=== PATIENT | male | born 1960 | race Caucasian/White ===

== ENCOUNTER → 2023-07-17 | Outpatient (CLI) | payer OTHER, SELFPAY ==
--- NOTE | 2023-07-17 15:47 | RAD_ITS ---
STUDY: X-RAY - RIGHT KNEE REASON FOR EXAM: Male, 62 years old. pain TECHNIQUE: 4 view(s) of the knee. COMPARISON: None. FINDINGS: Normal visualized distal femur. Normal visualized proximal tibia and fibula. Normal proximal tibiofibular articulation. Narrowed medial femorotibial compartment with mild valgus deformity.. Normal lateral femorotibial compartment. Narrowed lateral compartment of the patellofemoral articulation. The soft tissue structures are unremarkable. RAD/Knee 4 or More Views IMPRESSION: Advanced degenerative osteoarthritic change. Electronically Signed: Jordon Ramesh MD at 16:09 EST Reading Location ID and State: [address] [place] [address] Tel , Service support ,
== END | disposition home or self-care (01) ==
LOC: RAD 15:36
PROVIDERS: Referring Provider Orthopaedic Surgery; Visit Provider Orthopaedic Surgery
DX: M25.561 Pain in right knee (principal)
CPT/HCPCS: 73564

== ENCOUNTER → 2023-08-31 | Outpatient (CLI) | payer OTHER, SELFPAY ==
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
--- OUTSIDE RECORDS SUMMARY | 2023-08-31 07:02 | XMS RPT_ITS | CCD ---
Author Name Unknown Address [facility] [place] [address] Organization [facility] Care Team Providers Care Women'S Studies Professor Name Role Phone Tim Fields Jr. Primary Care Provider BARBARA HUNTER Attending Unavailable TIM FIELDS JR Primary Care Unavaila ble Medications Completed/Discontinued Medications Medication Drug Class(es) Dates Sig (Normalized) Sig (Original) Acetaminophen (1 source) ACETAMINOPHEN (T YLENOL EXTRA STRENGTH ORAL) Take by mouth as needed. 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 06-12-2012 Chronic Past or Other Problems Problem Classification Problem Date Documented Da te Episodic/Chronic Other upper respiratory disease (1 source) Bleeding from nose; Translations: [Epistaxis] Onset: 06-12-2012 06-12-2012 Episodic Results Test Name Value Interpretation Reference Range Facil ity Encounters Encounter Date Encounter Type Care Provider Facility Start: 09-28-2022 End: 09-28-2022 ambulatory BARBARA HUNTER Facility:[facility] Start: 09-28-2022 End: 09-28-2022 ambulatory Barbara Duckworth PA-C Work Phone: [facility] Plan of Treatment Date Care Activity Detail Author Start: 07-10-2022 DEPRESSION ASSESSMENT DEPRESSION ASS ESSMENT [facility] Start: 02-05-2021 COVID-19 VACCINE (3 - Booster for Pfizer series) COVID-19 VACCINE (3 - Booster for Pfizer series) [facility] Start: 2017 PROSTATE CANCER SCRE ENING DISCUSSION PROSTATE CANCER SCREENING DISCUSSION [facility] Start: 06-12-2015 DIABETES SCREEN DIABETES SCREEN [facility] Start: 2012 SHINGRIX VACCINE (1 of 2) SHINGRIX V ACCINE (1 of 2) [facility] Start: 10-02-2007 COLOGUARD (FIT-DNA) COLOGUARD (FIT-D NA) [facility] Start: 10-02-2007 Colonoscopy COLONOSCOPY [facility] Start: 10-02-2007 COLORECTAL CANCER SCREENING COLORECTAL CANCER SCREENING [facility] Start: 10-02-[address] COLONOGRAPHY [facility] Start: 10-02-2007 FECAL OCCULT BLOOD FECAL OCCULT BLOO D [facility] Start: 10-02-2007 SIGMOIDOSCOPY SIGMOIDOSCOPY [facility] Start: 1997 LIPID SCREEN LIPID SCREEN [facility] Start: 1981 Urine microalbumin profile DTAP,TDAP ,TD (1 - Tdap) [facility] Start: 1980 HEPATITIS C SCREENING HEPATITIS C SC REENING [facility] Start: 1980 HIV SCREENING HIV SCREENING [facility] Immunizations Immunization Date Immunization Notes Care Provider Marilin wyatt 04-27-2022 influenza virus vacc ine, unspecified formulation Barbara Duckworth PA-C Work Phone: [facility] 04-26-2021 influenza virus vacc ine, unspecified formulation Barbara Duckworth PA-C Work Phone: [facility] Payers Date Payer Category Payer Private Health Insurance [facility] CHOICE PLUS [id number] 2022-Present [phone] [address] [place] [address] O [id number] 2022 Unknown [id number] Social History Date Type Detail Facility Start: 10-25-[address] [facility] Start: 10-25-2012 Tobacco use and exposure Smokeless tobacco non-user [facility] Start: 09-27-2022 Alcohol intake Current drinke r of alcohol (finding) [facility] Start: 10-25-2012 Alcohol Comment [facility] Start: 1960 Sex Assigned At Not on file [facility] Medical Equipment Procedure Code Equipment Code Equipment Origin al Text Equipment Identifier Dates Duraseal 5ml - [id number] Start: 07-17-2012 Progress note 09-28-2022 Note Date & Type Note Facility 09-28-2022 Note HNO ID: [id number] Author: Barbara Duckworth PA-C Service: ? Author Type: Physician Alum Plant Operator Type: Progress Notes Filed: 09/30/2022 7:29 AM Note Text: This is a virtual visit using [employer] video visit. It required patient-provider interaction for the medical decision making as documented below. I have communicated my name and active licensure. The patient's identity and physical location were verified at the time of this visit. Either the patient or their legal retail representative has been informed of the risks and benefits of -- and alternatives to -- treatment through a remote evaluation and consents to proceed with the evaluation remotely. Ruben Bear is a 61 year old male seen for anemia. Patient tells me that he has a chronic anemia. 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 Patient tells me that he is not having any GI symptoms. Denies abdominal pain, change in bowel habits, rectal bleeding. Does note some black stools after his bad nosebleeds. Denies smoking or alcohol use. Father had throat cancer, was smoker. HISTORY REVIEWED (electronic chart updated): PAST MEDICAL HISTORY Diagnosis Date Anemia PAST SURGICAL HISTORY Procedure Laterality Date CAUTERIZATION INNER NOSE 07/10/2001 bilateral COLONOSCOPY SCREENING 02/27/2012 internal hemorrhoids NASAL/SINUS ENDOSCOPY W/CONTROL EPISTAXIS 07/17/2012 PAST SURGICAL HISTORY OF neck surgery ( imflamed lymph node) No family history on file. Social History Tobacco Use Smoking status: Never Smokeless tobacco: Never Substance Use Topics Alcohol use: Yes Comment: occasionally Drug use: No Current Outpatient Medications Medication Sig celecoxib (CELEBREX) 100 mg capsule Take 100 mg by mouth once daily. COMPOUNDED PRESCRIPTION [facility] NASAL CREAM. Apply with Qtip 4 times daily to each nostril. timolol 0.5 % ophthalmic solution 1 Drop twice daily. One spray to each nostril three times daily. ACETAMINOPHEN (TYLENOL EXTRA STRENGTH ORAL) Take by mouth as needed. No current facility-administered medications for this visit. ALLERGIES No Known Allergies REVIEW OF SYSTEMS: Review of Systems Constitutional: Negative for weight loss. HENT: Positive for nosebleeds. Gastrointestinal: Negative. PHYSICAL EXAMINATION: VIDEO EXAM: (if completed, performed via video enabled technology) Not completed due to connectivity issues. Assessment/Plan (D50.0) Iron deficiency anemia due to chronic blood loss (primary encounter diagnosis) 1. Iron deficiency anemia due to chronic blood loss -- Patient with chronic LORETTA. Thinks this is related to his HHT and recurrent nosebleeds. -- He is currently taking Iron and Vitamin C. -- Discussed the need for colonoscopy as he is overdue. He would like to hold off on this. -- Discussed FIT test today r/o GI source of bleeding, he also declines this today. -- Discussed red flag symptoms including abdominal pain, change in bowels, rectal bleeding. He will call the office if this presents. Follow up in office PRN. Recommended to please call office/go to ER if fever, chills, chest pain, SOB, diarrhea, nausea, emesis, worsening abdominal pain, dehydration occurs I spent a total of 20 minutes on the date of the service which included preparing to see the patient, [id number] patient care, completing clinical documentation, obtaining and/or reviewing separately obtained history, performing a medically appropriate examination, and counseling and educating the patient/family/caregiver. Barbara Duckworth PA-C September 28, 2022 3:38 PM [facility] History of Present illness Narrative 09-28-2022 Barbara Duckworth PA-C - 09/28/2022 3:40 PM EDT Note Date & Type Note Facility 09-28-2022 History of Presen t illness Narrative Images from the original note were not included. This is a virtual visit using [employer] video visit. It required patient-provider interaction for the medical decision making as documented below. Ruben Bear is a 61 year old male seen for anemia. Patient tells me that he has a chronic anemia. 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 Patient tells me that he is not having any GI symptoms. Denies abdominal pain, change in bowel habits, rectal bleeding. Does note some black stools after his bad nosebleeds. Denies smoking or alcohol use. Father had throat cancer, was smoker. HISTORY REVIEWED (electronic chart updated): PAST MEDICAL HISTORY Diagnosis Date Anemia PAST SURGICAL HISTORY Procedure Laterality Date CAUTERIZATION INNER NOSE 07/10/2001 bilateral COLONOSCOPY SCREENING 02/27/2012 internal hemorrhoids NASAL/SINUS ENDOSCOPY W/CONTROL EPISTAXIS 07/17/2012 PAST SURGICAL HISTORY OF neck surgery ( imflamed lymph node) No family history on file. Social History Tobacco Use Smoking status: Never Smokeless tobacco: Never Substance Use Topics Alcohol use: Yes Comment: occasionally Drug use: No Current Outpatient Medications Medication Sig celecoxib (CELEBREX) 100 mg capsule Take 100 mg by mouth once daily. COMPOUNDED PRESCRIPTION [facility] NASAL CREAM. Apply with Qtip 4 times daily to each nostril. timolol 0.5 % ophthalmic solution 1 Drop twice daily. One spray to each nostril three times daily. ACETAMINOPHEN (TYLENOL EXTRA STRENGTH ORAL) Take by mouth as needed. No current facility-administered medications for this visit. ALLERGIES No Known Allergies REVIEW OF SYSTEMS: Review of Systems Constitutional: Negative for weight loss. HENT: Positive for nosebleeds. Gastrointestinal: Negative. PHYSICAL EXAMINATION: VIDEO EXAM: (if completed, performed via video enabled technology) Not completed due to connectivity issues. Assessment/Plan (D50.0) Iron deficiency anemia due to chronic blood loss (primary encounter diagnosis) 1. Iron deficiency anemia due to chronic blood loss -- Patient with chronic LORETTA. Thinks this is related to his HHT and recurrent nosebleeds. -- He is currently taking Iron and Vitamin C. -- Discussed the need for colonoscopy as he is overdue. He would like to hold off on this. -- Discussed FIT test today r/o GI source of bleeding, he also declines this today. -- Discussed red flag symptoms including abdominal pain, change in bowels, rectal bleeding. He will call the office if this presents. Follow up in office PRN. Recommended to please call office/go to ER if fever, chills, chest pain, SOB, diarrhea, nausea, emesis, worsening abdominal pain, dehydration occurs I spent a total of 20 minutes on the date of the service which included preparing to see the patient, [id number] patient care, completing clinical documentation, obtaining and/or reviewing separately obtained history, performing a medically appropriate examination, and counseling and educating the patient/family/caregiver. Barbara Duckworth PA-C September 28, 2022 3:38 PM documented in this encounter [facility] Evaluation note Note Date & Type Note Facility documented in this encounter [facility] Summary Purpose Family History No Family History Records FoundNo Family History Records FoundNo Family History Records FoundNo Family History Records Found Advance Directives No Advanced Directives Records FoundNo Advanced Directives Records FoundNo Advanced Directives Records FoundNo Advanced Directives Records Found Additional Source Comments (unrecognized sect ion and content) No Status Records FoundNo Status Records FoundNo Status Records FoundNo Status Records Found INFORMATION SOURCE (unrecogn ized section and content) DATE CREATED AUTHOR AUTHOR'S ORGANIZ ATION 08/11/2021 [employer] DATE CREATED AUTHOR AUTHOR'S ORGANIZ ATION 08/07/2022 [employer] [facility] DATE CREATED AUTHOR AUTHOR'S ORGANIZ ATION 06/25/2023 [facility] Source Comments (unrecognize d section and content) In the event this informatio n is protected by the Federal Confidentiality of Alcohol and Drug Abuse Patient Records regulations: The Federal rules restrict any use of the information to criminally investigate or prosecute any alcohol or drug abuse patient.[facility] Reason for Visit (unrecogniz ed section and content) Care Teams (unrecognized sec tion and content) FOR RECORDS PERTAINING TO PATIENTS WHO ARE OR HAVE BEEN ENROLLED IN A CHEMICAL DEPENDENCY/SUBSTANCEABUSE PROGRAM, SOME INFORMATION MAY BE OMITTED. This clinical summary was aggregated from multiple sources. Caution should be exercised in using it in the provision of clinical care. This summary normalizes information from multiple sources, and as a consequence, information in this document may materially change the coding, format and clinical context of patient data. In addition, data may be omitted in some cases. CLINICAL DECISIONS SHOULD BE BASED ON THE PRIMARY CLINICAL RECORDS. [facility] [employer] [facility]. provides no warranty or guarantee of the accuracy or completeness of information in this document.
== END | disposition home or self-care (01) ==
LOC: CT 07:00
PROVIDERS: Referring Provider Orthopaedic Surgery; Visit Provider Orthopaedic Surgery
DX: M17.11 Unilateral primary osteoarthritis, right knee (principal)
CPT/HCPCS: 73700

== ENCOUNTER 2023-09-12 08:07 | Inpatient (IN) | payer OTHER, SELFPAY ==
--- NOTE | 2023-08-31 07:02 | EKG12_ITS ---
Test Reason : PRE-OP Blood Pressure : / mmHG Vent. Rate : 070 BPM Atrial Rate : 070 BPM P-R Int : 122 ms QRS Dur : 074 ms QT Int : 382 ms P-R-T Axes : 032 036 027 degrees QTc Int : 412 ms Normal sinus rhythm Normal ECG Confirmed by YAQUELIN CHU, DIAMANTE ([id number]), purchasing expeditor BRONWYN MELENDEZ ([id number]) on 09/01/2023 6:48:58 AM Referred By: JANIE Confirmed By:DIAMANTE JAMISON MD
[2023-08-31 08:06] LABS: Absolute Lymphocyte Count 1.17 X10^3/uL (0.83-4.51); Absolute Neutrophil Count 3.2 X10^3/uL (2.0-7.7); Basophil# 0.05 X10^3/uL; Basophil% 0.9 % (0-1); Eosinophil# 0.19 X10^3/uL; Eosinophils% 3.6 % (0-5); Hemoglobin 13.5 g/dL (13.0-16.5); Lymphocyte # 1.17 X10^3/ul (0.83-4.51); Lymphocyte % 22.1 % (19-41); Mean Corp Hgb Conc 30.7 g/dL (32-36); Mean Corpuscular Hgb 27.7 pg (27.0-32.0); Mean Corpuscular Volume 90.2 fL (80-94); Mean Platelet Vol. 10.2 fl (6.2-12.0); Monocyte# 0.63 X10^3/uL; Monocyte% 11.9 % (0-10); NRBC Flagged by Analyzer 0 % (0-5); Neutrophil # 3.24 X10^3/uL (2.7-7.7); Neutrophil % 61.3 % (47-70); Platelet Count 216 K/mm3 (150-450); RBC Distribution Width CV 15.3 % (11.6-14.6); RBC Distribution Width SD 48.5 fl (35.1-43.9); Red Blood Count 4.88 M/mm3 (4.6-6.2); White Blood Count 5.3 K/mm3 (4.4-11.0)
[2023-08-31 08:17] LABS: Prothrombin Time (Protime)PT. 13.3 SECONDS (11.7-14.9)
[2023-08-31 08:18] LABS: Partial Thromboplast Time 29.2 Seconds (24.1-36.2)
[2023-08-31 08:27] LABS: Anion Gap 2 (5-15); BUN 17 mg/dL (7-18); Calcium,Total 9.1 mg/dL (8.5-10.1); Chloride 112 mmol/L (98-107); Creatinine, Serum 0.89 mg/dL (0.70-1.30); EST Glomerular Filtration Rate 92 mL/min (>60); Est Glom Filt Rate - Afr Amer 111 mL/min (>60); Glucose 103 mg/dL (74-106); Potassium 4.1 mmol/L (3.5-5.1); Sodium Level 142 mmol/L (136-145)
[2023-08-31 08:32] LABS: Magnesium 1.8 mg/dL (1.6-2.6)
[2023-08-31 08:43] LABS: Hemoglobin A1c 4.9 % (3.8-5.6)
[2023-09-01 05:07] LABS: Fructosamine 212 umol/L (0-285)
[2023-09-12] VITALS (15 sets, daily range): BP systolic 130–141; BP diastolic 56–96; PULSE 60–99; RESP 16–18; TEMP 36.5–36.7; O2SAT 95–100; BMI 29.2
--- OUTSIDE RECORDS SUMMARY | 2023-09-12 08:35 | XMS RPT_ITS | CCD ---
Author Name Unknown Address [facility] [place] [address] Organization [facility] Care Team Providers Care Manager Merchandise Name Role Phone Tim Fields Jr. Primary [...] Start: 09-28-2022 End: 09-28-2022 ambulatory BARBARA HUNTER Facility:[facility] Start: 09-28-2022 End: 09-28-2022 ambulatory Barbara Duckworth PA-C Work Phone: [facility] [place] Plan of Treatment Date Care Activity Detail Author Start: 07-10-2022 DEPRESSION ASSESSMENT DEPRESSION ASS ESSMENT [facility] Start: 02-05-2021 COVID-19 VACCINE (3 - Booster for Pfizer series) COVID-19 VACCINE (3 - Booster for Pfizer series) [facility] Start: 2017 PROSTATE CANCER SCRE ENING DISCUSSION PROSTATE CANCER SCREENING DISCUSSION [facility] Start: 06-12-2015 DIABETES SCREEN DIABETES SCREEN [facility] Start: 2012 SHINGRIX VACCINE (1 of 2) SHINGRIX V ACCINE (1 of 2) [facility] Start: 10-02-2007 COLOGUARD (FIT-DNA) COLOGUARD (FIT-D NA) [facility] Start: 10-02-2007 Colonoscopy COLONOSCOPY [facility] Start: 10-02-2007 COLORECTAL CANCER SCREENING COLORECTAL CANCER SCREENING [facility] Start: 10-02-[address] COLONOGRAPHY [facility] Start: 10-02-2007 FECAL OCCULT BLOOD FECAL OCCULT BLOO D [facility] Start: 10-02-2007 SIGMOIDOSCOPY SIGMOIDOSCOPY [facility] Start: 1997 LIPID SCREEN LIPID SCREEN [facility] Start: 1981 Urine microalbumin profile DTAP,TDAP ,TD (1 - Tdap) [facility] Start: 1980 HEPATITIS C SCREENING HEPATITIS C SC REENING [facility] Start: 1980 HIV SCREENING HIV SCREENING [facility] Immunizations Immunization Date Immunization Notes Care Provider Marilin wyatt 04-27-2022 influenza virus vacc ine, unspecified formulation Barbara Duckworth PA-C Work Phone: [facility] 04-26-2021 influenza virus vacc ine, unspecified formulation Barbara Duckworth PA-C Work Phone: [facility] Payers Date Payer Category Payer Private Health Insurance [facility] CHOICE PLUS [id number] 2022-Present [phone] [address] [place] [address] O [id number] 2022 Unknown [id number] Social History Date Type Detail Facility [facility]: 10-25-2012 [facility] Start: 10-25-2012 Tobacco use and exposure Smokeless tobacco non-user [facility] Start: 09-27-2022 Alcohol intake Current drinke r of alcohol (finding) [facility] Start: 10-25-2012 Alcohol Comment [facility] Start: 1960 Sex Assigned At Not on file [facility] Medical Equipment Procedure Code Equipment Code Equipment Origin al Text Equipment Identifier Dates Duraseal 5ml - [id number] Start: 07-17-2012 Progress note 09-28-2022 Note Date & Type Note Facility 09-28-2022 Note HNO ID: [id number] Author: Barbara Duckworth PA-C Service: ? Author Type: Physician Steam Frame Operator Type: Progress Notes Filed: 09/30/2022 7:29 AM Note Text: This is a virtual visit using [employer] video visit. It required patient-provider interaction for the medical decision making as documented below. I have communicated my name and active licensure. The patient's identity and physical location were verified at the time of this visit. Either the patient or their legal bilingual call center representative has been informed of the risks [...] which included preparing to see the patient, [id number] patient care, completing clinical documentation, obtaining and/or reviewing separately obtained history, performing a medically appropriate examination, and counseling and educating the patient/family/caregiver. Barbara Duckworth PA-C September 28, 2022 3:38 PM [facility] History of Present illness Narrative 09-28-2022 Barbara Duckworth PA-C - 09/28/2022 3:40 PM EDT Note Date & Type Note Facility 09-28-2022 History of Presen t illness Narrative Images from the original note were not included. This is a virtual visit using [employer] video visit. It required patient-provider interaction for [...] which included preparing to see the patient, [id number] patient care, completing clinical documentation, obtaining and/or reviewing separately obtained history, performing a medically appropriate examination, and counseling and educating the patient/family/caregiver. Barbara Duckworth PA-C September 28, 2022 3:38 PM documented in this encounter [facility] Evaluation note Note Date & Type Note Facility documented in this encounter [facility] Summary Purpose Family History No Family History [...] DATE CREATED AUTHOR AUTHOR'S ORGANIZ ATION 08/11/2021 [employer] DATE CREATED AUTHOR AUTHOR'S ORGANIZ ATION 08/07/2022 [employer] [facility] DATE CREATED AUTHOR AUTHOR'S ORGANIZ ATION 06/25/2023 [facility] Source Comments (unrecognize d section and content) In the event this informatio n is protected by the Federal Confidentiality of Alcohol and Drug Abuse Patient Records regulations: The Federal rules restrict any use of the information to criminally investigate or prosecute any alcohol or drug abuse patient.[facility] Reason for Visit (unrecogniz ed section and [...] BE BASED ON THE PRIMARY CLINICAL RECORDS. [facility] [employer] [facility]. provides no warranty or guarantee of the accuracy or completeness of information in this document.
[2023-09-12] MEDS: Gabapentin 600 MG Tablet PO (08:43)
[2023-09-12] MEDS: Lactated Ringers 1,000 ML 15 ML IV (08:43)
[2023-09-12] MEDS: Magnesium 2 GM for ERAS IV (08:43)
[2023-09-12] MEDS: Scopolamine 1mg/72hr Patch 1 PATCH TD (08:44)
[2023-09-12] MEDS: Acetaminophen 500 MG Tablet 1000 MG PO ×3 (08:44→22:07)
[2023-09-12 09:22] LABS: Bedside Glucose 104 mg/dL (74-106)
[2023-09-12] MEDS: Cefazolin 2 GM in 0.9% Normal Saline (100mL Bag) 100 ML IV ×2 (10:32→17:52)
[2023-09-12] MEDS: TXA 1000mg in NS100 100ml (IVPB at Closure) 660 MG IV (10:45)
--- NOTE | 2023-09-12 10:45 | KNEE_PTH ---
PATHOLOGY RESULTS PATIENT: RUBEN BEAR LOC: MS3 U#:[id number] AGE/SX: 62/M ROOM: KS321 RE09/12/[address]: Dr. Tim Mitchell DO : 1960 BED: 1 DIS: 09/13/2023 SPEC #: [id number] RECD: 09/13/23 07:59 STATUS: ARTEM CHAVIRA #: [id number] PIETRO: 09/12/23 10:[address]: Tim Mitchell DEPT: SURGICAL PATHOLOGY RECD BY: Lea Jeter ENTERED: 09/13/23 08:00 SP TYPE: TOTAL KNEE OTHR DR: Dr. Tim Carter MD Tissues: Knee, NOS Procedures: Decalcification bone/plaque Surgery Specimen Level IV HEADER OPERATION: ERAS, right total knee replacement robotic arm assisted PRE-OP DIAGNOSIS: Right knee pain TISSUE SUBMITTED: Right knee bone and tissue MICROSCOPIC DIAGNOSIS Bone and tissue of right knee, total knee resection: Severe degenerative joint disease. AM:raissa 09/18/2023 MICROSCOPIC DESCRIPTION Slides are reviewed. GROSS DESCRIPTION Received is one container designated bone and soft tissue right knee. The specimen consists of multiple fragments of lund-yellow bone measuring in aggregate 12.0 x 8.0 x 3.0 cm. No soft tissue is identified. A number of bony fragments contain articular surfaces consistent with tibial plateau and femoral condyle and displaying prominent osteophyte formation, eburnation and bone erosion. Television Cable Installer sections are submitted in one cassette after decalcification. / SJ:raissa 09/13/2023 TC:5 CPT: 48456, [id number]
[2023-09-12] MEDS: TXA 1000mg in NS100 100ml (IVPB at Incision) 660 MG IV (11:14)
[2023-09-12] MEDS: dexAMETHasone 4 MG/ML Vial (11:15)
[2023-09-12] MEDS: Epinephrine (1 mg/ml) 1 MG/ML VIAL (11:56)
[2023-09-12] MEDS: 0.9% Normal Saline (Pres. free 10 ML Vial ×2 (11:58→11:59)
[2023-09-12] MEDS: Bupivacaine 0.5% PF 10 ML VIAL (12:01)
--- NOTE | 2023-09-12 13:02 | PCM.OP.BLANK ---
Operative Report Date of Procedure: 09/12/23 Preoperative diagnosis: Right knee DJD Postoperative diagnosis: Same Procedure: Right total knee arthroplasty CT guided Robotic Assisted Implant: [place] triathlon press fit, femoral component size6, tibial baseplate size 6, asymmetric patella size 35, polyethylene X3 size 10 CS Anesthesia: General with adductor canal block Tourniquet time: 12 minutes at 300 mmHg Complications: None Condition: Stable to PACU Estimated blood loss: 200 cc Hot Dip Plating Supervisor Gregory Fraser. My physician children's nursery assistant was a vital part of this case. He was important in appropriate retraction during the case, and protection of soft tissues during procedure. His intimate knowledge of the case and my steps aided in safe and expedient completion of the procedure as well as appropriate position of the extremity during the case. He was also vital in assisting with closure under my direct supervision. Indication for procedure: This is a 62-year-old male with long standing degenerative joint disease of the knee who has failed conservative treatment and wished to proceed with elective total knee arthroplasty. Risk benefits and alternatives were reviewed including; risk of bleeding, infection, nerve artery and tissue damage, continued pain, postoperative stiffness, venous thromboembolism, need for postoperative rehabilitation, mechanical feel to the knee, and expected postoperative course. The pre- operative CT and templating was performed with component sizing. Procedure: The patient was met in the preoperative holding area. The operative extremity was identified by both patient and physician and was marked. Patient was met by anesthesia. An adductor canal block was placed by anesthesia postoperatively the patient was brought back to the operating room on a wheeled cart and transferred to the operating table in the supine position. Anesthesia was started. A well-padded tourniquet was placed on the operative extremity. The patient was prepped and draped in the usual sterile fashion. A timeout was called to ensure the proper patient procedure and extremity were being contemplated. An esmarch was used to exsanguinate the extremity. The tourniquet was inflated. A 10 blade scalpel was used to make a midline incision down through the skin and subcutaneous tissue. Skin retractors placed. Bovie and Aquamantis were used to perform meticulous hemostasis. full-thickness flaps were elevated medial and lateral along the joint capsule. A deep blade scalpel was used to perform a medial parapatellar arthrotomy. The knee was brought to full extension. A bovie was used to release the soft tissues off the most proximal aspect of the medial tibial plateau, a three-quarter inch curved osteotome was also used in this process. The infrapatellar fat pad was excised. The suprapatellar fat pad was excised partially anteriorolateraly and portion the anterioromedial pad was elevated from the femur. At this point our intra-articular femoral array was placed at a 45 degree angle proximal and posterior to the medial epicondyle. femoral checkpoint was placed at this time. Our tibial array was placed greater than 1 hands breath below the incision at a 20 degree angle stab incisions were made with a 15 blade scalpel and pins were placed and attached to the tibial array , tibial checkpoint was placed in the proximal tibial metaphysis. Tourniquet was let down. At this point registration anaya were taken throughout the knee . Once the knee was registered we then tensioned the medial and lateral ligaments in extension and 90 degrees of flexion. We then used these numbers to adjust our components within parameters to balance the knee in both flexion and extension once this was done on our monitor we then proceeded with using the robotic arm to make our tibial plateau cut, anterior and posterior chamfer and distal femur cuts. we removed the cut fragments with the use of a bovie and Corie, we did use a lamina game developer to insure we visualized and removed all posterior osteophytes and at this time also used the Aquamantis on the posterior joint capsule. we then trialed and achieved the desired plan with a well-balanced knee. we used the green probe to mora the corresponding tibial rotation based on our CT template. Lug holes were drilled in the femur the tibia preparation was completed with the appropriate sized base plate pinned based on previous rotation mora. An appropriate sized fin punch was used on the tibia and 4 corner drill was used for the press fit component and the patella was prepared by first using a caliper to ensure sufficient bone stock and a patellar reamer to remove the desired amount of bone. lug holes drilled for an asymmetric poly. We then brought the knee through range of motion with excellent patellar tracking. We thoroughly irrigated the knee. Trial components were removed a posterior capsular injection was preformed with our standard cocktail. In addition the aqua Mantis was also used to aid in hemostasis. Betadine rinse was allowed to sit and washed out completely. Components were press-fit into place. Aricept rinse was then used followed by several more liters of irrigation after it was allowed to sit. The joint capsule was closed with #1 Ethibond [id number] in the upper part of the arthrotomy and #1 Vicryl in the lower part of the arthrotomy. , Followed by 2-0 Vicryl in the subcutaneous tissues with flash in the skin. Arrays and checkpoints were removed prior to closure all counts were correct stab incisions were closed with a staple standard dressing in the form of Mepilex AG for the main incision and a small Mepilex over the pin holes. Thigh-high HARSHA hose applied over top of dressing. Patient tolerated the procedure well and was directed to PACU in stable condition . There were no intraoperative complications.
--- NOTE | 2023-09-12 13:35 | RAD_ITS ---
HISTORY post op -- AP and Lateral xray of operative knee in PACU. TECHNIQUE: XR Knee 1 or 2 Views. COMPARISON: 07/17/2023. FINDINGS: BONES : No acute fracture identified. No abnormal periprosthetic lucency seen. JOINTS: Right knee in place without dislocation. Blank SOFT TISSUES: Expected postoperative air and edema with overlying skin flash. RAD/Knee 1 or 2 Views IMPRESSION: Satisfactory postoperative alignment of right knee arthroplasty. Electronically Signed: Irasema Herrera MD at 13:45 EST ,
[2023-09-12] MEDS: 0.9% Normal Saline (1000mL) 1,000 ML 125 ML IV ×3 (15:17→22:10)
[2023-09-12] MEDS: oxyCODONE 5 MG Tablet PO ×2 (15:21→19:34)
[2023-09-12 18:00] LABS: Prothrombin Time (Protime)PT. 13.5 SECONDS (11.7-14.9)
--- NOTE | 2023-09-12 18:41 | NURSING ---
pharmacy notified of pt/inr result from this afternoon-awaiting them to send dose
[2023-09-12] MEDS: Senna/Docusate Sodium 1 Tablet 2 TABLET PO (22:07)
[2023-09-13] MEDS: oxyCODONE 5 MG Tablet PO ×2 (00:35→08:40)
[2023-09-13 03:00] VITALS: BP 129/62; PULSE 84; RESP 16; TEMP 36.6; O2SAT 98
[2023-09-13] MEDS: Cefazolin 2 GM in 0.9% Normal Saline (100mL Bag) 100 ML IV ×2 (03:13→09:54)
[2023-09-13] MEDS: Acetaminophen 500 MG Tablet 1000 MG PO ×2 (05:44→13:30)
[2023-09-13 06:27] VITALS: BP 118/70; PULSE 84; RESP 16; TEMP 36.9; O2SAT 97
[2023-09-13 07:47] LABS: Hematocrit 35.6 % (40-54); Mean Corp Hgb Conc 30.9 g/dL (32-36); Mean Corpuscular Hgb 27.9 pg (27.0-32.0); Mean Corpuscular Volume 90.4 fL (80-94); Mean Platelet Vol. 10.6 fl (6.2-12.0); Platelet Count 259 K/mm3 (150-450); RBC Distribution Width CV 14.4 % (11.6-14.6); RBC Distribution Width SD 46.2 fl (35.1-43.9); Red Blood Count 3.94 M/mm3 (4.6-6.2); White Blood Count 17.1 K/mm3 (4.4-11.0)
[2023-09-13 08:06] LABS: Prothrombin Time (Protime)PT. 13.5 SECONDS (11.7-14.9)
[2023-09-13 08:09] LABS: Anion Gap 7 (5-15); BUN 11 mg/dL (7-18); BUN/Creat Ratio 11.1 RATIO (10-20); Calcium,Total 8.3 mg/dL (8.5-10.1); Chloride 105 mmol/L (98-107); Creatinine, Serum 0.99 mg/dL (0.70-1.30); EST Glomerular Filtration Rate 82 mL/min (>60); Est Glom Filt Rate - Afr Amer 99 mL/min (>60); Estimated Creatinine Clearance 80.94 ml/min; Glucose 118 mg/dL (74-106); Potassium 3.9 mmol/L (3.5-5.1); Sodium Level 139 mmol/L (136-145)
[2023-09-13] MEDS: Ascorbic Acid 500 MG Tablet PO (08:39)
[2023-09-13] MEDS: Senna/Docusate Sodium 1 Tablet 2 TABLET PO (08:39)
[2023-09-13] MEDS: 0.9% Saline Lock 10 ML Syringe IV (09:54)
[2023-09-13] MEDS: Cholecalciferol (VIT D3) 25 MCG TABLET (1,000 UNITS) PO (09:54)
--- NOTE | 2023-09-13 12:31 | PN.ORTHO_ITS ---
Subjective Subjective Patient seen and examined. Denies any fevers chills nausea vomit shortness of breath or chest pain. He is quite sore in the knee. Objective Data Objective Data Vital Signs: Vital Signs Temp Pulse Resp BP Pulse Ox O2 Del Method O2 Flow Rate 98.4 F 84 16 118/70 97 Room Air 4 09/13/23 06:27 09/13/23 06:27 09/13/23 06:27 09/13/23 06:27 09/13/23 06:27 09/13/23 06:27 09/12/23 14:41 Oxygen Flow Rate (L/min) 4 Oxygen Delivery Method Room Air Weight: 186 lb 8.177 oz Body Mass Index (BMI) 29.2 Intake & Output: Intake and Output for Last 24 Hours 09/11/23 09/12/23 09/13/23 23:59 23:59 23:59 Intake Total 3404.42 / 3404.42 1720 / 1720 Output Total 600 / 600 Balance 3404.42 / 3404.42 1120 / 1120 Lab / Micro Data 09/13/23 07:00 09/13/23 07:00 Labs: Laboratory Results - last 24 hr 09/12/23 17:40: PT 13.5, INR 1.0 09/13/23 07:00: WBC 17.1 H, RBC 3.94 L, Hgb 11.0 L, Hct 35.6 L, MCV 90.4, MCH 2 7.9, MCHC 30.9 L, RDW Std Deviation 46.2 H, RDW Coeff of Mary Lou 14.4, Plt Count 259, MPV 10.6, PT 13.5, INR 1.0, Sodium 139, Potassium 3.9, Chloride 105, Carbon Dioxide 27.0, Anion Gap 7, BUN 11, Creatinine 0.99, Estim Creat Clear Calc 80.94, Est GFR (MDRD) Af Amer 99, Est GFR (MDRD) Non-Af 82, BUN/Creatinine Ratio 11.1, Glucose 118 H, Calcium 8.3 L Micro: Microbiology 08/31/23 07:30 Swab (Method) Nasal Screen MRSA/MSSA - Final Radiography Diagnostic Testing: Radiology Impression Knee X-Ray 09/12/23 13:35 IMPRESSION: Satisfactory postoperative alignment of right knee arthroplasty. Electronically Signed: Irasema Herrera MD at 13:45 EST , Physical Exam Const alert, oriented x3 and no apparent distress General Appearance: cooperative Extremity Extremity Narrative: Right knee dressings clean dry and intact compartments soft neurovascular intact EHL tibialis anterior gastrocsoleus Assessment & Plan Assessment/Plan (1) Status post total right knee replacement: (2) HHT (hereditary hemorrhagic telangiectasia): PLAN: Plan Postop day #1 right total knee arthroplasty PT OT weightbearing as tolerated he is ambulating well DVT DVT prophylaxis SCDs HARSHA hose Coumadin secondary to his HHT he will continue and follow-up with his PCP tomorrow for an INR check Start outpatient physical therapy as scheduled Patient wishes to be discharged home today and does not wish to stay another night.
--- NOTE | 2023-09-13 12:34 | PCM.DC ---
Discharge Instructions Diet Discharge Diet: No restrictions Activity Weight Bearing Status: Full weight bearing Dressing / Incision Call your doctor if you observe: Shortness of breath and Chest pain Additional Dressing/Incision Instructions:: Ice and elevate lower extremities 2 weeks while not ambulating. Ambulation is encouraged. Weight bearing as tolerated. Use assistive devise for stability. Encourage FULL knee extension and flexion 1 time EVERY time you get up and down and MULTIPLE times per day. No showering until 72 hours after surgery. May begin showering postop day #3. Remove the dressing prior to shower and gently wash with warm water and antibacterial soap then pat dry and place abdominal pad (or plain gauze) and HARSHA hose over top. This is to be done daily. Do not submerge for 3 weeks. If not showering daily after the initial 72 hours then you must clean incision and change dressing daily. Do not allow animals near the incision area. Keep clean. Follow anti-coagulation recommendations as prescribed. Follow-up with your PCP for INR check as scheduled and for possible medication changes do not take any NSAIDs while on blood thinner. Do not take any additional narcotic pain medication other than what was prescribed on your surgery day without discussing with physician. Narcotic medication can be addictive. Do not drink alcohol while taking narcotics. Supplement narcotic prescription with acetaminophen 1000 mg 4 times a day. Start physical therapy. If you are not currently scheduled for physical therapy or you are unsure of appointment time please call office [facility] to arrange. Call Dr. Mitchell with any concerns. Follow Up Care Please Follow Up With: Tim Mitchell DO When: 2 weeks Test Results: Test results from this visit will be discussed in further detail at your follow-up appointment, if applicable. Discharge Plan Admission Admit Date/Time: 09/12/23 08:07 Primary Reason for Your Visit: Right total knee arthroplasty Attending Provider: Tim Mitchell Primary Care Provider: Tim Carter Instructions Additional Instructions / Restrictions: f/u with PCP for INR check as scheduled Discharge Orders/Prescriptions Prescriptions: New acetaminophen 500 mg Tablet 1,000 mg PO Q6H Qty: 90 1RF warfarin [Jantoven] 5 mg Tablet 5 mg PO DINNER Qty: 14 0RF oxycodone 5 mg tablet 5 - 15 mg PO Q4H PRN (Reason: pain) 5 Days Qty: 60 0RF Continued multivitamin Tablet 1 tab PO DAILY cholecalciferol (vitamin D3) 25 mcg (1,000 unit) capsule 25 mcg PO DAILY ferrous gluconate 324 mg (37.5 mg iron) tablet 324 mg PO DAILY ascorbic acid (vitamin C) [C-500] 500 mg tablet 500 mg PO DAILY Discontinued naproxen 500 mg tablet 500 mg PO Q12H Patient Comments: STOP 7-10 DAYS PRIOR TO OR Referrals / Follow Up: Tim Carter MD [Primary Care Provider] - Disposition Disposition (needs filled in before D/C Order can be placed): Home, Self Care
--- NOTE | 2023-09-13 12:45 | CASEMGMT ---
CHRISTOPHER VAZQUEZ Assessment: Face to Face with pt for initial transition planning/care coordination assessment. RN GEORGE introduced self and role at [facility], pt voices understanding and consents to assessment. Pt is A&O x4 and answers all questions appropriately at this time. Pt sitting up in bed in no distress with at bedside. Care providers, pharmacy, and demographics verified/updated. Admitting Dx: R TKR PCP:Raul Specialists:unruly Mitchell Pharmacy: [facility] Retail Insurance: [facility] Retail Prescription Benefit: yes LNOK: Felicita Daniel, Living Arrangements: Pt lives with in a two story home with 3 steps to enter. Pt reports he is I in ADL's and denies concerns at home. Transportation: Pt drives self and denies concerns with transportation. Pt will transport pt until he can drive again. DME:FW[employer], ice machine HHC/SNF: Pt denies hx of Pt states no concerns with going home at time of dc. Pt has outpt therapy set up on Monday at [facility]. Pt states no further concerns/needs. CM to follow. Advised pt to ask CM if any further question/concerns/needs arise, voices understanding. Pt Goal: Home with outpt therapy already set up Plan: Home with outpt therapy already set up Shelli WHITE CM
[2023-09-13 13:00] VITALS: BP 141/84; PULSE 96; RESP 18; TEMP 37.2; O2SAT 97
[2023-09-13] MEDS: oxyCODONE 5 MG Tablet 15 MG PO (13:30)
[2023-09-13 14:48] VITALS: BP 141/84; PULSE 96; RESP 18; TEMP 37.2; O2SAT 97
--- NOTE | 2023-09-15 09:17 | PCM.HP.BLA ---
History and Physical Date of Admission: 09/12/23 [facility] [address] [place] [address] OFFICE VISIT Date of Service: 08/02/23 MR#: [id number] Acct: [id number] Name: RUBEN BEAR Rep #: [id number] : 1960 Provider: Dr. Tim Mitchell DO Age/Sex: 62/M [place] [facility] [place] Signed with Addenda ADDENDUM by Dr. Tim Mitchell DO on 08/02/23 at 0923 Assessment and Plan Assessment and Plan (1) Osteoarthritis of right knee: Status: Acute Qualifiers: Osteoarthritis type: primary Qualified Code(s): M17.11 - Unilateral primary osteoarthritis, right knee (2) HHT (hereditary hemorrhagic telangiectasia): Status: Acute Plan After further investigation it appears that Coumadin would be the anticoagulation of choice for tolerance and ease of reversal. If patient wishes to proceed with joint arthroplasty we would need to coordinate with his PCP to manage Coumadin monitoring postoperatively I did call the patient and left him a message to give us a call back to discuss. 08/02/23 0923 <Electronically signed by Tim Mitchell DO> Date Tim Mitchell DO cc: ~* Signed Intake Vital Signs 08/02/2407:06 Height 5 ft 7 in Weight: 188 lb 8 oz BMI 29.5 Intake Visit Reasons: RIGHT KNEE Is patient in pain?: Yes Allergies ibuprofen Adverse Reaction (Mild, Verified 08/02/23 08:07) Bleeding Medications cholecalciferol (vitamin D3) 25 mcg (1,000 unit) capsule 25 mcg PO DAILY 08/02/23 [History Confirmed 08/02/23] ferrous gluconate 324 mg (37.5 mg iron) tablet 324 mg PO DAILY 08/02/23 [History Confirmed 08/02/23] multivitamin 1 tab PO DAILY 08/02/23 [History Confirmed 08/02/23] naproxen 500 mg tablet mg PO 08/02/23 [History Confirmed 08/02/23] PFS Surgical History (Updated 08/02/23 @ 08:36 by Debra Rogel) H/O knee surgery H/O of nasal cauterization Family History (Updated 08/02/23 @ 08:09 by Debra Rogel) Mother CancerFather Cancer Social History household members: spouse Smoking Status: Never smoker alcohol intake: current alcohol intake frequency: a few times a week HPI RIGHT KNEE Details: This documentation accurately reflects the service provided and the decisions made by me, Dr. Tim Mitchell, DO 08/02/23 0759. Part of today?s visit was documented by Debra Guerrero atc, acting as scribe. RUBEN BEAR is a 62 year old M here today for right knee pain. Patient states that he has had right knee pain for many years. He states that his pain has been on and off for the last 40 years. Patient did something to his knee at the new year where he had swelling. He denies any known injury or new activities. Patient had a knee arthroscopy (unsure physician) in 2016 in [place], [place] for arthroscopic removal of loose bodies. Patient states that he has no ACL from foot ball injury many years ago that was not treated surgically, and has osteoarthritis since 2016. Patient complains of pain into his medial knee. He denies any popping or clicking. Patient complains of knee instability. He has a knee sleeve that he wears daily since the first of the year. Patient denies any recent injections or physical therapy. Patient had xrays which are here for review. Patient denies any MRI. Patient takes tylenol and naproxen for pain as needed. He has been taking naproxen twice daily from his PCP. He has nosebleeds daily due to his hereditary hemorrhagic telangiectasia (HHT) and he can not take ibuprofen , but can take naproxen. Patient notes that his knee right now is better than what it was prior to the new year. He rates his pain at a 9 or 10 at its worse for acute fleeting pain and gets chronic less but still intense pain. He has a pain into his right foot medial arch at times. Ortho Exam General General: Yes no acute distress Neurologic: Yes alert and Yes oriented x3 Psychologic: Yes reasonable and appropriate Right Knee Skin/Wound: Yes CDI, No erythema, No ecchymosis and No swelling Knee ROM: Yes ROM-Extension -20 to 0 (-2) and Yes ROM-Flexion 0-140 (125) Examination: No Med jt line tenderness, No Lat jt line tenderness, Yes Crepitus, No TTP Pes Anserine and No Illiotibial band tenderness Stability: NML: Varus 0 and NML: Varus 30, 1+: Valgus 0 and 1+: Valgus 30 (3mm medial gapping due to joint space narrowing) and 3+: Anterior Drawer Patella Translation: 1 Apprehension with Lateral Translation: No Patellar Tilt Normal: Yes Patella Grind: No KNEE: varus deformity, scar from previous surgery. pain with varus stress test. crepitus and laxity with anterior drawer. Left Knee Patella Translation: 1 Head: Normocephalic Atraumatic Chest: symmetrical rise, non-labored breathing, no audible wheeze Abdomen: no guarding, non-rigid Supplemental Info 07/17/2023 x-ray right knee: Advanced knee arthrosis with varus deformity and eburnation of medial tibial plateau Coding Level of Care Code Off vis,new,level 3 Diagnoses Primary osteoarthritis of right knee M17.11 Osteoarthritis type: primary HHT (hereditary hemorrhagic telangiectasia) I78.0 Assessment and Plan Assessment and Plan (1) Osteoarthritis of right knee: Status: Acute Qualifiers: Osteoarthritis type: primary Qualified Code(s): M17.11 - Unilateral primary osteoarthritis, right knee (2) HHT (hereditary hemorrhagic telangiectasia): Status: Acute Plan Educated the patient about the anatomy of the knee and etiology of his pain. Spoke with him about having severe osteoarthritis and his options. Due to his varus deformity and medial gapping, he may trial an medial pocket cutter brace. His other options and the risks/benefits for each option- steroid injection, viscosupplementation injections, physical therapy, total knee arthroplasty. Physical therapy Strengthening the quads and hamstrings can help with the stability of his knee. He may have a steroid injection every 3 months as needed. Spoke to the patient about risk of blood clot after total knee arthroplasty, and the fact that we usually use a blood thinner such as Eliquis for 2 weeks postoperatively however considering his age HTN this is of significant concern if he develops a nosebleed that cannot be controlled. We also discussed proceeding without the use of an anticoagulant which puts him at a very high risk for blood clot and blood clots are usually treated with higher doses of blood thinner so this is a concern. We also discussed about possibly using a baby aspirin twice a day for 1 month postoperatively he is not sure whether the aspirin will precipitate increase nosebleeds or not so we could perform a trial. Off the naproxen and on a baby aspirin twice a day and see what happens in a controlled setting. If he decides to proceed surgically We would need clearance from his PCP specifically to address HHT. Patient may need to be inpatient due to his HHT, for monitoring postoperatively for bleeding. Spoke with the patient about the recovery with a total knee arthroplasty. It may take up to 2 years to full recover most patients are happy they had the surgery performed by 3 months but not all. He will likely be off work for 2-3 months. He will be weightbearing the day of his surgery with a walker. Spoke with him about his other risks- infection, mechanical feel to his knee, stiffness. He will need to do physical therapy to prevent stiffness, and needs to achieve full range of motion by 6 weeks otherwise chronic stiffness could ensue versus a manipulation under anesthesia at that time may be needed. Patient will need a CT scan for the makoplasty. He will have a patch of numbness over his lateral knee, which is permanent and expected. He would need to stop the naproxen for 7 days prior to surgery. Patient would like to discuss with his and will let our office know. Follow up on an as needed basis or sooner if pain, swelling, numbness or associated symptoms, or concerns develop. All questions answered. Patient in agreement of plan. 08/02/23 0916 <Electronically signed by Tim Mitchell DO> Date Tim Mitchell DO Cosigner Signature: Date (if applicable) CC: ~ I have examined the patient and the H&P has been reviewed. There are no clinical changes since date of exam.
--- NOTE | 2023-09-15 09:18 | DS.PCM_ITS ---
Providers Date of Admission: 09/12/23 Primary Care Physician: Dr. Tim Carter MD Reason For Visit: ERAS Right Total Knee Replacement R Diagnosis Discharge Diagnosis (1) Status post total right knee replacement: Status: Acute Code(s): Z96.651 - Presence of right artificial knee joint (2) HHT (hereditary hemorrhagic telangiectasia): Status: Acute Code(s): I78.0 - Hereditary hemorrhagic telangiectasia Plan Postop day #1 right total knee arthroplasty PT OT weightbearing as tolerated he is ambulating well DVT DVT prophylaxis SCDs CLARENCE partida Coumadin secondary to his HHT he will continue and follow-up with his PCP tomorrow for an INR check Start outpatient physical therapy as scheduled Patient wishes to be discharged home today and does not wish to stay another night. Medications at Discharge Home Medications cholecalciferol (vitamin D3) 25 mcg (1,000 unit) capsule 25 mcg PO DAILY SUPPLEMENT 08/02/23 ferrous gluconate 324 mg (37.5 mg iron) tablet 324 mg PO DAILY SUPPLEMENT 08/02/23 multivitamin 1 tab PO DAILY SUPPLEMENT 08/02/23 ascorbic acid (vitamin C) 500 mg tablet (C-500) 500 mg PO DAILY SUPPLEMENT 08/23/23 acetaminophen 500 mg tablet 1,000 mg (2 x 500 mg) PO Q6H #90 tabs 09/13/23 docusate sodium 100 mg capsule (Colace) 100 mg PO BID #30 caps 09/13/23 oxycodone 5 mg tablet 5 - 15 mg (1 - 3 x 5 mg) PO Q4H PRN pain 5 days #60 tabs 09/13/23 warfarin 5 mg tablet (Jantoven) 5 mg PO DINNER #14 tabs 09/13/23 Hospital Course Operations total knee replacement Summary of Care Provided Hospital Course: Who has long history of degenerative joint disease to the knee who has failed conservative treatment and wished to undergo elective total knee arthroplasty. Patient underwent the aformentioned procedure on the admission date without any intraoperative complications. Patient did receive pre-and postoperative antibiotics which were discontinued within 23 hours postoperatively. Patient did receive general anesthesia and a postoperative adductor canal block. pain was controlled with IV and transition to p.o. pain medication Patient will be discharged home with oxycodone and will continue Tylenol as well. Patient did not have excessive intraoperative blood loss and 2gm tranexamic acid was administered there was no need for postoperative blood transfusion Patients vital signs remained stable. Patient was started on both mechanical and chemical DVT per prophylaxis postoperatively in the form of SCDs CLARENCE hose and [5 mg of Coumadin daily he is scheduled to follow-up with his PCP for an INR check and medication adjustments if needed for which she will continue for 2 additional weeks post hospital discharge, Coumadin was chosen secondary to his history of HHT and nosebleeds for ease of reversal if problems arise. thigh h igh clarence hose placed over top of the meplix silver dressing. This should be removed 72 hrs post operatively and showering begun daily at that time with warm water and antibacterial soap. not to submerge for 3 weeks. To change dressing daily after first dressing change. Patient will follow-up in the office in 2 weeks. No intrahospital complications. Weight / BMI Weight Weight: 186 lb 8.177 oz Body Mass Index (BMI) 29.2 ABG / Lab / Microbiology Data 09/13/23 07:00 09/13/23 07:00 Microbiology: Microbiology 08/31/23 07:30 Swab (Method) Nasal Screen MRSA/MSSA - Final D/C Instructions Discharge Diet: No restrictions Weight Bearing Status: Full weight bearing Call your doctor if you observe: Shortness of breath and Chest pain Additional Dressing/Incision Instructions: Ice and elevate lower extremities 2 weeks while not ambulating. Ambulation is encouraged. Weight bearing as tolerated. Use assistive devise for stability. Encourage FULL knee extension and flexion 1 time EVERY time you get up and down and MULTIPLE times per day. No showering until 72 hours after surgery. May begin showering postop day #3. Remove the dressing prior to shower and gently wash with warm water and antibacterial soap then pat dry and place abdominal pad (or plain gauze) and CLARENCE hose over top. This is to be done daily. Do not submerge for 3 weeks. If not showering daily after the initial 72 hours then you must clean incision and change dressing daily. Do not allow animals near the incision area. Keep clean. Follow anti-coagulation recommendations as prescribed. Follow-up with your PCP for INR check as scheduled and for possible medication changes do not take any NSAIDs while on blood thinner. Do not take any additional narcotic pain medication other than what was prescribed on your surgery day without discussing with physician. Narcotic medication can be addictive. Do not drink alcohol whi le taking narcotics. Supplement narcotic prescription with acetaminophen 1000 mg 4 times a day. Start physical therapy. If you are not currently scheduled for physical therapy or you are unsure of appointment time please call office [facility] to arrange. Call Dr. Mitchell with any concerns. Please Follow Up With: Tim Mitchell DO When: 2 weeks Meaningful Use Info Meaningful Use Diagnoses (Choose all that apply): None applicable Discharge Plan Admission Admit Date/Time: 09/12/23 08:07 Primary Reason for Your Visit: Right total knee arthroplasty Attending Provider: Tim Mitchell Primary Care Provider: Tim Carter Instructions Additional Instructions / Restrictions: f/u with PCP for INR check as scheduled Discharge Orders/Prescriptions Prescriptions: New acetaminophen 500 mg Tablet 1,000 mg PO Q6H Qty: 90 1RF warfarin [Jantoven] 5 mg Tablet 5 mg PO DINNER Qty: 14 0RF oxycodone 5 mg tablet 5 - 15 mg PO Q4H PRN (Reason: pain) 5 Days Qty: 60 0RF docusate sodium [Colace] 100 mg capsule 100 mg PO BID Qty: 30 0RF Rx Instructions: While taking narcotic to minimize constipation Continued multivitamin Tablet 1 tab PO DAILY cholecalciferol (vitamin D3) 25 mcg (1,000 unit) capsule 25 mcg PO DAILY ferrous gluconate 324 mg (37.5 mg iron) tablet 324 mg PO DAILY ascorbic acid (vitamin C) [C-500] 500 mg tablet 500 mg PO DAILY Discontinued naproxen 500 mg tablet 500 mg PO Q12H Patient Comments: STOP 7-10 DAYS PRIOR TO OR Referrals / Follow Up: Tim Carter MD [Primary Care Provider] - Disposition Disposition (needs filled in before D/C Order can be placed): Home, Self Care
== END 2023-09-13 15:58 | disposition home or self-care (01) | DRG 470 ==
LOC: ACINP 08:09 → MS3 13:44
PROVIDERS: Anesthesiology; Admitting Provider Orthopaedic Surgery; Referring Provider Orthopaedic Surgery; Visit Provider Orthopaedic Surgery
PROC: 0SRC0JZ Replacement of Right Knee Joint with Synthetic Substitute, Open Approach (ICD-10-PCS; CPT 27447; principal; 2023-09-12 10:15)
DX: M17.11 Unilateral primary osteoarthritis, right knee (principal); I78.0 Hereditary hemorrhagic telangiectasia; I10 Essential (primary) hypertension; Z79.01 Long term (current) use of anticoagulants; Z79.899 Other long term (current) drug therapy
CPT/HCPCS: 36415; 73560; 80048; 82962; 82985; 83036; 83735; 85025; 85027; 85610; 85730; 86850; 86900; 86901; 87081; 88305; 88311; 93005; 94668; 97162; 97166; 97530; 99252; C1776; J7030; J7120; A4216; G0463; J2405; J3490

== ENCOUNTER → 2023-10-23 | Outpatient (CLI) | payer OTHER, SELFPAY ==
--- NOTE | 2023-10-23 10:35 | RAD_ITS ---
STUDY: X-RAY - RIGHT KNEE REASON FOR EXAM: Male, 63 years old. Pain. TECHNIQUE: 3 views of the right knee. COMPARISON: Right knee radiographs dated 09/12/2023. FINDINGS: The previously seen skin flash have been removed. The previously seen soft tissue gas has resorbed. Again seen is a right total knee arthroplasty with patellar resurfacing. The orthopedic hardware components are intact. However, there is increased periprosthetic lucency adjacent to the posterior femoral condyles, concerning for loosening. There is no periprosthetic fracture. There is a large joint effusion with prepatellar soft tissue swelling. Normal proximal tibiofibular articulation. RAD/Knee 3 Views IMPRESSION: Increased periprosthetic lucency adjacent to the posterior femoral condyles, concerning for loosening. No periprosthetic fracture. Large joint effusion with prepatellar soft tissue swelling. Electronically Signed: Donovan Rivera MD at 8:59 EDT ,
== END | disposition home or self-care (01) ==
LOC: MTRAD 10:29
PROVIDERS: Referring Provider Orthopaedic Surgery; Visit Provider Orthopaedic Surgery
DX: M25.561 Pain in right knee (principal); Z96.651 Presence of right artificial knee joint
CPT/HCPCS: 73562

== ENCOUNTER 2023-11-03 16:30 | Outpatient (RCR) | payer OTHER, SELFPAY ==
--- NOTE | 2023-09-20 10:19 | HP.PTEVAL_ITS ---
Patient's Visit Information Visit Information Visit Information: RUBEN BEAR is a 62 year old M referred to Physical Therapy by Dr. Tim Mitchell DO with a diagnosis of R TKA (DOS: 09/13/2023). Date of Evaluation: 09/15/23 Physical Therapist: Hakeem Segovia DPT Visit Plan Frequency: 3x /Week Duration: 2 Months Plan: -knee ROM (AROM and PROM) joint mobs (ant, post, distraction) and strap assisted ROM -quad strengthening (start off using strap for SLR) -hip/glute strengthening (bridging, S/L hip ABD......) -STM and stretching to quads, hamstrings, and calves -work on floor transfers once pt is appropriate Pt has high PLOF, once full ROM is achieved, wean pt to no AD and focus on strengthening activities to prepare pt to get back to biking, hiking, and standing for long periods at work. (HEP: seated HR/TR, supine assisted heel slides, SAQ, assisted SLR) Subjective Subjective: Pt presents to PT s/p L TKA 09/13/2023. 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 Pt lives in a two-story house, 3 stairs to get into house from garage and a full flight of stairs to get up to bathroom/shower and bedroom. Pt able to live on main floor, but would like to practice navigating stairs. Normally sleeps in bed, but slept in recliner last night d/t pain. Pt likes to woodwork, work in garage/around house, ride his bike, hike, and play with grandkids. Pts attended appt with him today, pt currently using FWW. Noted some bruising behind R thigh, has hx of HHT. Pt denies any calf pain or changes in swelling, has some redness of medial R knee. Pt has some concerns about being able to get up and down off the floor to play with his grandkids. Pain Right Knee: Pain Intensity (Out of 10): 6 Pain Intensity Range: 3 and 10 Objective Objective: MMT: LLE - knee ext 4/5, knee flex 4-/5, DF 4+/5, PF 4+/5 RLE - knee ext 2+/5, knee flex 2+/5 both painful, SLR required strap assistance, DF 3+/5, PF 3+/5 ROM: R knee flex 70 deg, lacking 15 deg knee ext GIRTH: 18 patellar, suprapatellar 20.25 mild edema and swelling, no sign of infection or DVT STS: min to mod UE support, stiffness in R knee upon standing GAIT: antalgic with pilar UE support on FWW, decreased knee flex with swing phase d/t pain/swelling/stiffness TU.43 with FWW STAIRS: step-to pattern with L sided HR and SPC, x2 trials, once with SPT guarding, once with pts assisting him Pt overall progressing as expected in acute phase, painful with knee ROM and walking, but pt motivated to participate in therapy and demo'd good safety awareness with navigating stairs. Balance/Special Test Scores Lower Extremity Functional Score: 10 Goals Goal 1:: Pt will achieve 0-0-120 knee ROM Goal Time Frame: 4-6 Weeks Goal 2:: Pt will amb. 300+ ft with no AD and normalized gait pattern Goal Time Frame: 4-6 Weeks Goal 3:: Pt will demonstrate symmetrical LE strength Goal Time Frame: 8-12 Weeks Goal 4:: Pt will navigate steps with reciprocal pattern and no HR Goal Time Frame: 8-12 Weeks Goal 5:: Pt will be able to stand for 2+ hours with <2/10 pain Goal Time Frame: 8-12 Weeks Goal 6:: Pt will be able to hike/bike for 5+ miles with <2/10 pain Goal Time Frame: 8-12 Weeks Rehabilitation Potential Physical Therapy Diagnosis: Pt presents to PT with R knee pain, decreased ROM, gait deficits, and RLE weakness s/p TKA. Pt would benefit from skilled PT services to address gait mechanics, RLE strengthening, R knee ROM, and improve overall tolerance to work and recreational related tasks. Rehabilitation Potential: Excellent Anticipated Interventions Patient/Client Instruction: Educate patient on: Plan of Care For the Purpose of:: To decrease pain, To decrease swelling/inflammation, To increase ROM, To improve nutrient delivery to tissue, To increase oxygenation perfusion, To improve muscle performance and motor function, To improve ability to perform ADL's, To increase tolerance to activity/condition/position, To improve performance and independence with ADL's, To decrease level of supervision to perform tasks, To improve ability of physical actions for home/community/work/leisure, To improve gait and locomotor functions, To improve health of tissue, To decrease soft tissue restriction, To increase flexibility/ROM, To improve endurance, To improve balance, To improve safety with gait, To assume or resume ADL's, To improve safety, To improve health and function, To foster healthy habits, To improve decision making, To facilitate ca regiver knowledge, To improve self management, To improve ability to perform tasks related to life management and To improve tolerance to ADL's Therapeutic Exercise to Include: Strength training, Endurance training, Balance training, Agility training, Postural training, Flexibilty training, Gait and locomotor training, Passive ROM and Active ROM For the Purpose of:: To decrease pain, To decrease swelling/inflammation, To increase ROM, To improve nutrient delivery to tissue, To increase oxygenation perfusion, To improve ability to perform ADL's, To increase tolerance to activity/condition/position, To improve performance and independence with ADL's, To improve ability of physical actions for home/community/work/leisure, To improve gait and locomotor functions, To improve health of tissue, To decrease soft tissue restriction, To reduce risk of recurrence, To improve health and function, To foster healthy habits, To facilitate caregiver knowledge, To improve self management, To improve ability to perform tasks related to life management and To improve tolerance to ADL's Manual Therapy Techniques to Include: Mobilization, Passive ROM and Soft tissue mobilization For the Purpose of:: To decrease pain, To decrease swelling/inflammation, To increase ROM, To improve nutrient delivery to tissue, To improve health of tissue, To decrease soft tissue restriction, To increase flexibility/ROM, To assume or resume ADL's and To improve tolerance to ADL's Cryotherapy (ice pack, ice massage): Yes For the Purpose of:: To decrease pain and To decrease swelling/inflammation Text: Thank you for the opportunity to evaluate your patient. For Medicare and Medicare HMO plans, please review the plan of care and approve it. It will need to be FAXED BACK to us at [phone] for Medicare purposes. For Medicare only, by signing this I certify the plan of care. Please let me know if there are questions or concerns regarding this plan of care. Physician Signature: Date:
== END 2023-11-03 19:00 | disposition home or self-care (01) ==
LOC: PT 16:30
PROVIDERS: Referring Provider Orthopaedic Surgery; Visit Provider Orthopaedic Surgery
DX: M17.11 Unilateral primary osteoarthritis, right knee (principal); Z96.651 Presence of right artificial knee joint
CPT/HCPCS: 97016; 97110; 97140; 97161

== ENCOUNTER → 2024-02-16 | Outpatient (CLI) | payer OTHER, SELFPAY ==
[2024-02-16 15:13] LABS: Hemoglobin 12.3 g/dL (13.0-16.5); Mean Corpuscular Hgb 26.8 pg (27.0-32.0); Mean Corpuscular Volume 89.3 fL (80-94); Mean Platelet Vol. 9.6 fl (6.2-12.0); Platelet Count 301 K/mm3 (150-450); RBC Distribution Width CV 14.1 % (11.6-14.6); RBC Distribution Width SD 45.8 fl (35.1-43.9); Red Blood Count 4.59 M/mm3 (4.6-6.2); White Blood Count 6.3 K/mm3 (4.4-11.0)
[2024-02-16 15:48] LABS: AST(SGOT) 24 U/L (15-37); Alanine Aminotransfer ALT/SGPT 39 U/L (16-61); Albumin, Serum 3.5 g/dL (3.2-5.0); Alkaline Phosphatase 93 U/L (45-117); Anion Gap 4 (5-15); BUN 20 mg/dL (7-18); BUN/Creat Ratio 18.3 RATIO (10-20); Calcium,Total 8.8 mg/dL (8.5-10.1); Chloride 111 mmol/L (98-107); Creatinine, Serum 1.09 mg/dL (0.70-1.30); EST Glomerular Filtration Rate 73 mL/min (>60); Est Glom Filt Rate - Afr Amer 88 mL/min (>60); Ferritin 14 ng/mL (26-388); Globulin 3.5 g/dL (2.2-4.2); Glucose 111 mg/dL (74-106); Iron 25 ug/dL (65-175); Iron Binding Capacity,Total 488 ug/dL (250-450); PERCENT IRON SATURATION 5.1 % (15.0-55.0); Potassium 3.9 mmol/L (3.5-5.1); Sodium Level 142 mmol/L (136-145); Thyroid Stim Hormone (TSH) 1.51 uIU/mL (0.358-3.74)
== END | disposition home or self-care (01) ==
LOC: LAB 14:28
DX: I78.0 Hereditary hemorrhagic telangiectasia (principal); D50.0 Iron deficiency anemia secondary to blood loss (chronic)
CPT/HCPCS: 36415; 80053; 82728; 83540; 83550; 84443; 85027

== ENCOUNTER → 2024-02-29 | Outpatient (CLI) | payer OTHER, SELFPAY ==
--- NOTE | 2024-02-29 07:57 | ECHOD_ITS ---
Reason For Study: HHT Procedure This was a 2D Doppler, Color Flow transthoracic echocardiogram. Exam performed in department. Left Ventricle Normal LV size. The estimated ejection fraction is 60 %. Normal diastology for age. No regional wall motion abnormalities noted. Right Ventricle Normal RV size. Normal systolic function. Atria The left and right atria are normal. No doppler evidence for ASD. Mitral Valve There is no mitral valve stenosis. No mitral valve insufficiency. Tricuspid Valve There is no tricuspid stenosis. Unable to estimate RV systolic pressure due to inadequate jet, pulmonary artery pressure probably normal. Aortic Valve Trisinus/trileaflet aortic valve. There is no aortic stenosis. No aortic valve insufficiency. Pulmonic Valve There is no pulmonic valvular stenosis. Trivial pulmonic valve insufficiency. Great Vessels Normal aortic root. Pericardium/Pleural No pericardial effusion. MMode/2D Measurements & Calculations LVIDd: 4.5 cm IVSd: 1.4 cm LVOT diam: 2.1 cm LVIDs: 2.8 cm LVPWd: 0.91 cm LVOT area: 3.3 cm2 RVDd: 3.2 cm FS: 39.2 % Ao root diam: 3.4 cm LAV(MOD-bp): 47.0 ml LVAd ap4: 28.2 cm2 LAV(MOD-bp) Indexed: 23.9 ml/m2 LVLd ap4: 8.5 cm LAV(MOD-sp2): 57.0 ml EDV(MOD-sp4): 76.3 ml LAV(MOD-sp4): 35.6 ml EDV(sp4-el): 79.8 ml LVAs ap4: 13.1 cm2 LVLs ap4: 6.7 cm ESV(MOD-sp4): 22.8 ml ESV(sp4-el): 21.8 ml EF(MOD-sp4): 70.1 % EF(sp4-el): 72.7 % SV(MOD-sp4): 53.4 ml SV(sp4-el): 58.0 ml LA A4 area: 14.5 cm2 LA dimension(2D): 3.7 cm RA A4 area: 14.6 cm2 TAPSE: 2.1 cm Time Measurements MV dec time: 0.23 sec Doppler Measurements & Calculations MV E max andrea: 63.5 cm/sec Lat Peak E' Andrea: 8.6 cm/sec Med Peak E' Andrea: 8.5 cm/sec MV A max andrea: 69.8 cm/sec E/E' lat: 7.4 E/E' med: 7.5 MV E/A: 0.91 MV V2 max: 77.3 cm/sec Ao V2 max: 133.2 cm/sec MV max P.4 mmHg MV dec slope: 274.3 cm/sec2 Ao max P.1 mmHg MV V2 mean: 37.5 cm/sec Ao V2 mean: 92.0 cm/sec MV mean P.69 mmHg Ao mean P.9 mmHg MV V2 VTI: 26.8 cm Ao V2 VTI: 29.5 cm AV (velocity ratio): 0.81 MVA(VTI): 3.0 cm2 RUFUS(I,D): 2.7 cm2 RUFUS(V,D): 2.8 cm2 LV V1 max: 111.6 cm/sec SV(LVOT): 79.9 ml PA V2 max: 96.5 cm/sec LV V1 max P.0 mmHg PA V2 mean: 64.4 cm/sec LV V1 mean P.6 mmHg LV V1 mean: 75.6 cm/sec LV V1 VTI: 24.0 cm PI end-d andrea: 75.6 cm/sec ECHO/Echo Complete Interpretation Summary The estimated ejection fraction is 60 %. Ordering Physician: EULALIA RAYMUNDO Referring Physician: EULALIA RAYMUNDO Performed By: Mariaa Petersen RCS
== END | disposition home or self-care (01) ==
LOC: CVS 07:49
DX: I78.0 Hereditary hemorrhagic telangiectasia (principal); D50.0 Iron deficiency anemia secondary to blood loss (chronic)
CPT/HCPCS: 93306

== ENCOUNTER → 2024-03-15 | Outpatient (CLI) | payer OTHER, SELFPAY ==
--- NOTE | 2024-03-15 09:04 | RAD_ITS ---
HISTORY pain. TECHNIQUE: XR Knee 3 Views. COMPARISON: 10/23/2023. FINDINGS: BONES : No acute fracture identified. No new periprosthetic lucency seen. Screw tracks in the mid tibia. JOINTS: Right knee in place without dislocation. Mild joint effusion. SOFT TISSUES: Mild anterior soft tissue swelling. RAD/Knee 4 or More Views IMPRESSION: Right knee arthroplasty without acute fracture or dislocation identified. Mild joint effusion and soft tissue swelling. Electronically Signed: Irasema Herrera MD at 11:46 EDT ,
== END | disposition home or self-care (01) ==
LOC: MTRAD 08:54
PROVIDERS: Referring Provider Orthopaedic Surgery; Visit Provider Orthopaedic Surgery
DX: M25.562 Pain in left knee (principal)
CPT/HCPCS: 73562; 73564

== ENCOUNTER → 2024-08-15 | Outpatient (CLI) | payer OTHER, SELFPAY ==
--- NOTE | 2024-08-15 14:00 | RAD_ITS ---
PROCEDURE: KNEE 3 VIEWS REASON FOR EXAM: TKA status. TECHNIQUE: 2 view(s) of the right knee COMPARISON: 03/15/2024. FINDINGS: No fracture. No suspicious bone lesion. Normal alignment. No effusion. Mild soft tissue swelling. Status post right knee arthroplasty. RAD/Knee 3 Views IMPRESSION: Intact right knee arthroplasty. Reading Location: [id number]
== END | disposition home or self-care (01) ==
LOC: RAD 13:59
PROVIDERS: Referring Provider Orthopaedic Surgery; Visit Provider Orthopaedic Surgery
DX: Z96.651 Presence of right artificial knee joint (principal)
CPT/HCPCS: 73562

== ENCOUNTER 2025-02-27 14:49 | Outpatient (RCR) | payer OTHER, SELFPAY ==
--- NOTE | 2025-02-27 16:06 | HP.PTEVAL_ITS ---
Patient's Visit Information Visit Information Visit Information: RUBEN BEAR is a 64 year old M referred to Physical Therapy by AUSTEN Acosta with a diagnosis of LBP with L LE radiculoapthy. Date of Evaluation: 02/27/25 Physical Therapist: Jimmy Yu, PT, ATC Visit Plan Frequency: 1x/Week Duration: 1-2 weeks Plan: Pt was educated on postural awareness and REIL HEP. Follow up in one week to assess benefit of REIL and to issue pt on core stab ex's Subjective Subjective: Pt reports having LBP for approximately 5 weeks. Pt reports his pain had an insidious onset in nature. Pt reports his pain is not bad during the day, but gets worse as the evening approaches. Pt reports sitting in his recliner and standing slouched while washing dishes tends to increase his pain. Pt reports standing upright and leaning back wards tends to decrease his pain. Pt has not had any diagnostic testing at this time. Pt reports he has had xrays in the past which revealed an increase in L/S lordosis. Pt notes he has had intermittent L LE radiculopathy that extends to the L ankle region. Pt notes that standing up and walking tends to decrease his pain. 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 Pt also notes that stretching his piriformis muscle helps to decrease his pain. 2/10 pain while sitting here in the clinic, 7/10 at worst. Pain LBP: Pain Intensity (Out of 10): 2 Pain Intensity Range: 7 Objective Objective: Neuro: B LE sensation is WNL to light touch when compared bilaterally. MMT: B LE's are strong and equal throughout when compared bilaterally ROM: L/S ext ROM is minimally limited. All other motions are WFL Repeated movements: RFIS 10x1 increased LBP. GEOFF 10x1 NE. Prone prop prgression decreased pain. REIL 10x2 NE Balance/Special Test Scores Oswestry Low Back Score: 6 Goals Goal 1:: I with HEP Goal Time Frame: 2-4 Weeks Rehabilitation Potential Physical Therapy Diagnosis: Pt has LBP and L LE radiculopathy secondary to L/S disc derrangement Rehabilitation Potential: Good Anticipated Interventions Patient/Client Instruction: Educate patient on: Condition and Plan of Care For the Purpose of:: To improve self management Therapeutic Exercise to Include: Strength training, Body mechanics, Postural training, Dynamic Lumbar Stabilization and Alejo Exercises For the Purpose of:: To decrease pain, To increase ROM and To improve muscle performance and motor function Text: Thank you for the opportunity to evaluate your patient. For Medicare and Medicare HMO plans, please review the plan of care and approve it. It will need to be FAXED BACK to us at [phone] for Medicare purposes. For Medicare only, by signing this I certify the plan of care. Please let me know if there are questions or concerns regarding this plan of care. Physician Signature: Date:
--- NOTE | 2025-04-15 11:46 | HP.PT.NRP ---
Patient Information Patient Information: RUBEN BEAR was seen in my office for initial evaluation on 02/27/25. The following Plan of Care was established for this patient: POC Established Initial Frequency: 1x/Week Initial Duration: 1-2 weeks Anticipated Interventions Patient/Client Instruction: Educate patient on: Condition and Plan of Care For the Purpose of:: To improve self management Therapeutic Exercise to Include: Strength training, Body mechanics, Postural training, Dynamic Lumbar Stabilization and Alejo Exercises For the Purpose of:: To decrease pain, To increase ROM and To improve muscle performance and motor function Last Seen Last Seen: This patient was last seen in our office . Pertinent comments regarding their Physical therapy will appear below: Pt has not returned for greater than 30 days and is discontinued at this time. At this point I will be discontinuing this patient from physical therapy. I would be happy to see this patient again in the future if found appropriate by the physician. Thank you! Jimmy Yu, PT, ATC Balance/Gait/Functional tests Balance/Special Test Scores Oswestry Low Back Score: 6
== END 2025-02-27 19:00 | disposition home or self-care (01) ==
LOC: PT 14:49
PROVIDERS: PCP Family Medicine Geriatric Medicine; Referring Provider Physician Assistant; Visit Provider Physician Assistant
DX: S39.012D Strain of muscle, fascia and tendon of lower back, subsequent encounter (principal); M54.16 Radiculopathy, lumbar region
CPT/HCPCS: 97161

== ENCOUNTER → 2025-05-09 | Outpatient (CLI) | payer OTHER, SELFPAY ==
--- NOTE | 2025-05-09 07:00 | RAD_ITS ---
PROCEDURE: RAD/L/S Spine Min 4 Views
== END | disposition home or self-care (01) ==
LOC: RAD 07:01
PROVIDERS: PCP Family Medicine Geriatric Medicine; Referring Provider Student in an Organized Health Care Education/Training Program; Visit Provider Student in an Organized Health Care Education/Training Program
DX: M54.9 Dorsalgia, unspecified (principal)
CPT/HCPCS: 72110

== ENCOUNTER → 2025-05-21 | Outpatient (CLI) | payer OTHER, SELFPAY ==
--- NOTE | 2025-05-21 12:56 | MRI_ITS ---
PROCEDURE: SPINE LUMBAR (ROUTINE) 05/21/2025 REASON FOR EXAM: LEFT LEG RADICULOPATHY, SPONDYLOLISTHESIS TECHNIQUE: Procedure Code: MRISPL Modality: MR Procedure: SPINE LUMBAR (ROUTINE) COMPARISON: Radiograph from May 09, 2025 FINDINGS: Bone marrow signal is grossly unremarkable aside from a benign signal lesion noted in T11. Chronic superior endplate compression fractures are noted at T11 and T12. There is grade 2 anterolisthesis of L5 on S1 with bilateral L5 spondylolysis. Multiple increased T2 signal lesions are noted in the liver which are nonspecific but may reflect cysts. The conus is noted posterior to L2. At T11-T12, there is a concentric disc bulge with AP canal diameter narrowing to 7 mm. At T12-L1, no significant disc disease. L1-2: No significant abnormality. L2-3: No significant abnormality. L3-4: No significant abnormality. L4-5: No significant abnormality. L5-S1: At the level of the subluxation, there is a broad-based posterior disc bulge with slightly more pronounced central zone protrusion on image 8, series 10. No central canal stenosis. The nerve roots may be compressed bilaterally. Sacrum: The visualized sacrum is unremarkable. MRI/Spine Lumbar (Routine) IMPRESSION: Grade 2 anterolisthesis of L5 on S1 with bilateral spondylolysis and probable n erve root compression bilaterally. There is disc disease at T11-T12 with moderate central canal stenosis. Please see above for additional details by level. [facility]
== END | disposition home or self-care (01) ==
PROVIDERS: PCP Family Medicine Geriatric Medicine; Referring Provider Student in an Organized Health Care Education/Training Program; Visit Provider Student in an Organized Health Care Education/Training Program
DX: M54.16 Radiculopathy, lumbar region (principal)
CPT/HCPCS: 72148

== ENCOUNTER 2025-06-26 15:30 | Outpatient (RCR) | payer OTHER, SELFPAY ==
--- NOTE | 2025-04-29 17:12 | HP.PTEVAL ---
Patient's Visit Information Visit Information Visit Information: RUBEN BEAR is a 64 year old M referred to Physical Therapy by AUSTEN Hagan with a diagnosis of lumbar radiculopathy. Date of Evaluation: 04/29/25 Physical Therapist: Guy Parra, LARRY, OCS, CSCS Visit Plan Frequency: 2x /Week Duration: 4-6 Weeks Plan: 2x/weeek for 3-6 weeks... IE HEP PPU 15x, trunk rotation 25x, pelvic tilt 20x all 2+x/day Ho given. treat with instruction in and progress to HEP of yoga back stretches and mat core strength and hip strength to HEP. consider gym once I in these. Subjective Subjective: History of LBp and sciatica. had therapy 6 weeks ago but not bad. Camee back for no reason. had it on and off for teen years. Symptoms LBP in L buttock and soree back and down to lateral foot. Steroids given by [facility] and it helped 90% . Twinge now and then in buttocks with standing and slightly bent doing dishes. Work : normal, sat most of day today and gets stiff. Sleep is oK now. home activities: Normal. Appointment with Dr. Krishna in 2 weeks. Pain L leg and buttock adn LB: Pain Intensity (Out of 10): 0 Pain Intensity Range: 0 and 5 Objective Objective: Walks into PT I and trasnfers I, steps reeciprocally without a problem. No pain today. Flat lordotic posture. No PA tenderness or paraspinal mm tenderness. Lumbar AROM eext mod limited and l slight discomfort, flexion adn SB are full and painfree. reflexes 2/3 patella dn achills Sensation B LE WNL to gross light touch B. strength hips flexion 3+ and instability at core inth contralteral Ir at hip. instability at core with testing at 3/5 flexion and ext. abd and ext hips 3+, knes 4 ext adn flexion B. ankles 4+/5. - SLR, - slump test Balance/Special Test Scores Oswestry Low Back Score: 7 Goals Goal 1:: full lumbar ROM without pain Goal Time Frame: 4-6 Weeks Goal 2:: I core strength program to limit future problems and manage condition. Goal Time Frame: 4-6 Weeks Goal 3:: Pt feel 95% btter overall pain and 1/10 at worst. Goal Time Frame: 4-6 Weeks Goal 4:: oswestry score 3 or better. Goal Time Frame: 4-6 Weeks Rehabilitation Potential Physical Therapy Diagnosis: stiff and weak Lb and core contributing to recurring LBP episodes Rehabilitation Potential: Good Anticipated Interventions Patient/Client Instruction: Educate patient on: Condition For the Purpose of:: To decrease pain, To increase ROM, To improve muscle performance and motor function, To increase tolerance to activity/condition/position and To improve ability of physical actions for home/community/work/leisure Therapeutic Exercise to Include: Strength training, Postural training, Flexibilty training, Passive ROM and Active ROM For the Purpose of:: To decrease pain, To increase ROM, To improve nutrient delivery to tissue, To improve muscle performance and motor function, To increase tolerance to activity/condition/position, To improve ability of physical actions for home/community/work/leisure and To improve gait and locomotor functions Text: Thank you for the opportunity to evaluate your patient. For Medicare and Medicare HMO plans, please review the plan of care and approve it. It will need to be FAXED BACK to us at [phone] for Medicare purposes. For Medicare only, by signing this I certify the plan of care. Please let me know if there are questions or concerns regarding this plan of care. Physician Signature: Date:
--- NOTE | 2025-06-26 16:17 | HP.PTDCSUM ---
Discharge Summary D/C summary: It has been my pleasure to treat RUBEN BEAR referred by AUSTEN Hagan, with the diagnosis of lumbar radiculopathy for a total of 13 visit(s). Discharge Date: 06/26/25 Please see the following information for a summary of their discharge status. Subjective Subjective: Pretty good. Hardly any discomfort. Mostly at night. Sleeps on back and can wake him up. No problems with daytime. Activities are normal. Wants to get back on bike. HEP going well adn can continue on his own. Pain L leg and buttock adn LB: Pain Intensity (Out of 10): 0 Overall Improvement % Improvement: 95 Objective Objective/Function: Godd l/s AROM without pain today. walks normal, walking lunge without back pain. Goals Goal 1:: full lumbar ROM without pain Goal Progress: Goal Met Goal 2:: I core strength program to limit future problems and manage condition. Goal Progress: Goal Met Goal 3:: Pt feel 95% btter overall pain and 1/10 at worst. Goal Progress: 995 Goal 4:: oswestry score 3 or better. Goal Progress: Goal Met Plan Plan: d/c to HEP D/C Information d/c sentence: If there are questions or concerns regarding this patient's physical therapy, please feel free to call me at [phone]. Thank you for the referral of this patient. Sincerely, Guy Parra, DPT, OCS, CSCS Balance/Gait/Functional tests Balance/Special Test Scores Oswestry Low Back Score: 2 Improvement % Improvement: 95
== END 2025-06-26 19:00 | disposition home or self-care (01) ==
LOC: PT 15:30
PROVIDERS: PCP Family Medicine Geriatric Medicine; Referring Provider Physician Assistant Surgical; Visit Provider Physician Assistant Surgical
DX: M54.16 Radiculopathy, lumbar region (principal)
CPT/HCPCS: 97110; 97161; 97164; 97530